=== PATIENT | female | born 1985 | race Caucasian/White ===

== ENCOUNTER 2019-01-19 19:22 | Inpatient (IN) ==
--- NOTE | 2019-01-19 20:10 | Obstetrical Progress Note ---
Date of Service January 19, 2019 Assessment & Plan (1) Post term , 41 weeks: I don't believe that a claudio bulb will be very effective for her at this point. I am also a little concerned about the bleeding at this point. Therefore, will monitor and see if she is in labor and what the bleeding does. Patient desires to be d/c if all is ok, baby looks well and she is not in active labor. She desires to do the early part of labor at home. Subjective Patient is a 33yowf with iup at 41 3/7 who presents for claudio bulb for planned induction tomorrow. Patient was in office today and was 1cm. Membranes stripped by physician. Since that time, she has been very crampy with some slight bleeding. +fm Physical Exam Constitutional: WD/WN, vitals as above Genitourinary: sve--cx is 1-2/90/-2, membranes feel intact sse--I had a really difficult time visualizing the cervix because of blood in the vault, tried to remove with large Q-tip but still had a hard time visualizing abandonded attempt toco--q2-4 min efm--120s with mod variability, accels to 150s, no decels Results & Data Vital Signs (Past 12 Hours) Vital Signs Temp Pulse Resp BP 01/19/19 19:39 36.4 C L 53 L 18 111/72 01/19/19 19:34 36.4 C L 53 L 18 111/72
[2019-01-19] MEDS ORDERED: PENICILLIN G POTASSIUM 3 MU in DEXTROSE 5% 100 ML IV PRN (22:19)
[2019-01-19] MEDS ORDERED: PENICILLIN G POTASSIUM 6 MU in DEXTROSE 5% 250 ML IV STA (22:19)
[2019-01-19] MEDS ORDERED: LACTATED RINGER'S 1,000 ML IV PRN (22:19)
[2019-01-19] MEDS ORDERED: OXYTOCIN 30 UNITS/500 ML BAG IV PRN (22:19)
--- NOTE | 2019-01-19 22:30 | History & Physical Report ---
Date of Service January 19, 2019 Assessment & Plan (1) Post term , 41 weeks: I suspect the patient is in early labor. Discussed given the bloody show I would like her to stay lizzie since she is scheduled for induction tomorrow. Fetus category one. Patient wants an unmedicated, noninterventional labor. Plan expectant management for now. arom/pit if indicated in the future. Anticipate . History of Present Illness Chief Complaint: contractions, induction planned for tomorrow. Primary Care Provider: NO PCP Patient is a with iup at 41 3/7 weeks who presented tonight for claudio bulb for cervical ripening. she had her membranes stripped in the office today and has been very crampy since with some mild bleeding. presented and was unable to really see cx with speculum secondary to blood. she was on my initial evaluation. has been uncomplicated. labs--O+/ab-/pap nl/ri/rprnr/hepb-/hiv-/gc/ct-/ gtt x 2 nl/panorama low risk/afp neg/gbs positive urein Allergies Allergy/AdvReac Type Severity Reaction Status Date / Time No Known Allergies Allergy Verified 01/19/19 19:36 Home Medications Home Medications Medication Instructions Recorded Confirmed Type PROBIOTIC PRODUCT (PROBIOTIC) 1 tab PO DAILY #0 02/05/18 01/19/19 History vit no.121-fbtd-sduae 1 tab PO DAILY #0 tab 02/05/18 01/19/19 History [ Vitamin] Patient History Medical History Healthy adult History of varicella Surgical History H/O hand surgery H/O oral surgery S/P dilation and curettage Social History Preferred Language: Yoruba Communication Ability: Effective Beliefs That Will Affect Care: None marital status: Current Living Situation: Spouse Other Information That Helps Us Care for You: No Feels Safe at Home: Yes Safety Concerns: Feels Safe At This Time Smoking Status: Never smoker Hx Alcohol Use: No Hx Substance Use: No OB History g1--715. 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
[2019-01-19 22:43] LABS: Hematocrit (blood only) 45.3 % (37-47); Hemoglobin 16.2 g/dL (12.0-16.0); Mean Corpuscular Volume 90.6 fL (80-100); Mean Platelet Volume 11.8 fL (7.4-10.4); Platelet Count 225 K/uL (130-400); RDW Coefficient of Variation 12.4 % (11.5-14.5); RDW Standard Deviation 41.2 fL (36.4-46.3); White Blood Count 18.62 K/uL (4.8-10.8)
[2019-01-19 22:44] LABS: Mean Corpuscular Hgb Conc 35.8 g/dL (32-36)
--- NOTE | 2019-01-20 03:17 | Labor Progress Brief Note ---
Date of Service January 20, 2019 Subjective breathing through contractions, doing well. Assessment & Plan (1) Post term , 41 weeks: Doing great. srom for clear fluid. Continue expectant management. fetus category one mostly. Physical Exam Constitutional: WD/WN, vitals as above Genitourinary: cx--8/100/-1 toco--q2-4min efm--120s with mod variability, rare variable, spon accel Results & Data Vital Signs (Past 12 Hours) Vital Signs Temp Pulse Resp BP 01/20/19 02:40 36.5 C 73 18 127/73 01/19/19 22:39 36.9 C 55 L 20 137/83 01/19/19 19:39 36.4 C L 53 L 18 111/72 01/19/19 19:34 36.4 C L 53 L 18 111/72
[2019-01-20] MEDS ORDERED: OXYCODONE/ACETAMINOPHEN 5mg/325mg TAB PO PRN (05:51)
[2019-01-20] MEDS ORDERED: ACETAMINOPHEN 325 MG TAB PO PRN (05:51)
[2019-01-20] MEDS ORDERED: BENZOCAINE 20% AER SPR 82.5 GM CAN EXT PRN (06:27)
[2019-01-20] MEDS ORDERED: SUPERCREAM 0.870% 15 GM JAR EXT PRN (06:27)
[2019-01-20] MEDS ORDERED: METHYLERGONOVINE MALEATE 0.2 MG/ML AMP IM ONE (06:27)
[2019-01-20] MEDS ORDERED: OXYTOCIN 30 UNITS/500 ML BAG IV PRN (06:27)
[2019-01-20] MEDS ORDERED: BISACODYL 10 MG SUPP PR PRN (06:27)
[2019-01-20] MEDS ORDERED: HYDROCORTISONE ACETATE 25 MG SUPP PR PRN (06:27)
--- NOTE | 2019-01-20 06:54 | Delivery Summary ---
DATE OF OPERATION: 01/20/2019 PREOPERATIVE DIAGNOSES: 1. Intrauterine at 41 and 3/7 weeks. 2. Active labor. POSTOPERATIVE DIAGNOSES: 1. Intrauterine at 41 and 3/7 weeks. 2. Active labor. PROCEDURES: 1. Normal spontaneous vaginal delivery. 2. Manual extraction of the placenta SURGEON: Alem Pizarro MD ANESTHESIA: None. ESTIMATED BLOOD LOSS: 450 mL. DESCRIPTION OF PROCEDURE: The patient presented to labor and delivery for Chapman catheter bulb placement for induction for the following day on 11/19. She was found to have some pretty good bleeding after having her membranes stripped in the office and she was 1-2 and 75% contractions about every 4 minutes. I decided not to put the Chapman bulb and just to observe her. She made some cervical change and we decided that she was in early active labor. Given that she was GBS positive, she was admitted. She progressed spontaneously without any intervention, had spontaneous rupture of membranes for clear fluid. When she became complete-complete and +1 station, she pushed for approximately an hour and a half to deliver a viable female in MARU/DOA presentation. The nose and mouth were bulb suctioned. On the perineum, there was no nuchal cord. The head restituted to the patient's left and the rest of the infant was then delivered without difficulty. The infant was immediately vigorous. There was terminal meconium. The nose and mouth were bulb suctioned. The infant was placed on maternal abdomen for drying and attention. The cord was clamped and cut at 1 minute of life. Cord blood was obtained. No segment. Placenta was manually extracted after 20 minutes and hemostasis was obtained with dilute Pitocin, IM Methergine and fundal massage. I did do one further sweep of the uterus after the manual extraction to remove some clot, but there were no appreciable retained products. The placenta appeared intact. Hemostasis was then good. The cervix, sulci, perineum, and rectum were all examined and found to be intact. No stitches were needed. Apgars were pending, weight pending. Mother and baby doing well at the end of the delivery. I attest to the content of the Intraoperative Record and any orders documented therein. Any exceptions are noted below. MTDD
[2019-01-20] MEDS: DOCUSATE SODIUM 100 MG CAP PO SCH ×2 (10:08→21:25)
[2019-01-20] MEDS: PRENATAL VITAMIN 1 TAB PO SCH (10:08)
[2019-01-20] MEDS: IBUPROFEN 600 MG TAB PO PRN (10:09)
--- NOTE | 2019-01-21 06:29 | Obstetrical Progress Note ---
Date of Service <Chas NeerajFabiano Randolph - Last Filed: 01/21/19 06:29> January 21, 2019 Assessment & Plan <Chas Randolph - Last Filed: 01/21/19 06:29> (1) (spontaneous vaginal delivery): -vital signs reviewed and WNL -last Hgb 16.2 -Blood type: O+, GBS+, Rubella Immune -pt doing well clinically -encourage ambulation, monitor and control pain with motrin tylenol, cont regular diet, monitor lochia -cont encourage breast feeding -anticipate d/c tomorrow Subjective <Chas NeerajFabiano Randolph - Last Filed: 01/21/19 06:29> 33 y/o PPD1 found in bed this morning in NAD. Reports no acute overnight events. Pt states that she has no pain other than appropriate soreness. Tolerating PO intake without N/V. Able to ambulate without issue. She is breast feeding without issue. No issues with voiding, no BM yet but passing gas. No other acute concerns or complaints. Review of Systems All systems reviewed & are unremarkable except as noted in HPI & below Physical Exam <Chas Randolph, - Last Filed: 01/21/19 06:29> Constitutional WD/WN, vitals as above Respiratory normal respiratory effort, lungs clear to auscultation Cardiovascular RRR, no murmur, no edema Gastrointestinal (Abdomen) mild abd tenderness Fundus at U, please correlate with attending findings Skin no rashes, warm and dry Psychiatric A+Ox3, euthymic affect Lymphatic no LE swelling, no calf tenderness Results & Data <Chas NeerajFabiano Randolph, - Last Filed: 01/21/19 06:29> Vital Signs (Past 12 Hours) Vital Signs Temp Pulse Resp BP Pulse Ox 01/21/19 03:40 36.6 C 59 L 16 104/61 98 01/21/19 00:10 36.7 C 90 16 101/60 98 01/20/19 20:05 36.7 C 72 16 113/66 98 Medications Administered Current Inpatient Medications Acetaminophen (Tylenol) 650 mg PO Q6H PRN PRN Reason: Pain/BAUGH/Fever Stop: 02/19/19 05:50 Benzocaine (Dermoplast Pain Relieving [place]) 1 appln EXT PRN PRN PRN Reason: Perineal Discomfort Stop: 02/19/19 06:26 Last Admin: 01/20/19 10:09 Dose: 82.5 appln Documented by: Bisacodyl (Dulcolax) 5 mg PO 1999 [facility] Stop: 01/21/19 20:01 Bisacodyl (Dulcolax) 10 mg [place] DAILY PRN PRN Reason: No BM on 2nd post- day Stop: 02/19/19 06:26 Cocaine HCl (Supercream 0.870%) 1 gm EXT BID PRN PRN Reason: Hemorrhoidal Inflammation Stop: 02/03/19 06:26 Last Admin: 01/20/19 10:08 Dose: 15 gm Documented by: Diphtheria/Pertussis/Tetanus Vacc (Adacel) 0.5 ml IM .ONCE ONE Stop: 01/21/19 09:01 Docusate Sodium (Colace) 100 mg PO BID [facility] Stop: 02/19/19 08:59 Last Admin: 01/20/19 10:08 Dose: 100 mg Documented by: Hydrocortisone (Anusol Hc) 25 mg [place] BID PRN PRN Reason: Hemorrhoidal Inflammation Stop: 02/19/19 06:26 Oxytocin (Pitocin) 30 units in 500 mls @ 333 mls/hr IV .Q1H31M PRN; Protocol PRN Reason: Bleeding Control Stop: 02/19/19 06:26 Last Titration: 01/20/19 06:45 Dose: Infused Documented by: Ibuprofen (Motrin) 600 mg PO Q4H PRN PRN Reason: Pain/BAUGH/Cramping/Fever Stop: 02/19/19 05:50 Last Admin: 01/20/19 10:09 Dose: 600 mg Documented by: Oxycodone/Acetaminophen (Percocet 5mg/325mg) 1 tab PO Q4H PRN PRN Reason: Pain not relieved by... Stop: 02/03/19 05:50 Prenat Multivit/[place]/Iron/Folic Ac ( Vitamin) 1 tab PO QAM [facility] Stop: 02/19/19 08:59 Last Admin: 01/20/19 10:08 Dose: 1 tab Documented by: <Nandini Adams MD - Last Filed: 01/21/19 07:45> Co-Signing Physician Notes I have reviewed the resident's note and examined the patient myself, and agree with the note above. The patient does desire discharge home today and is OK per starter cup powder mixer despite GBS, due to receiving adequate prophylaxis. Resident Activity Tracking <Chas Randolph, DO - Last Filed: 01/21/19 06:29> Resident Involvement: Resident Care Provided Care Provided: OB Delivery
[2019-01-21] MEDS: DOCUSATE SODIUM 100 MG CAP PO SCH (08:36)
[2019-01-21] MEDS: PRENATAL VITAMIN 1 TAB PO SCH (08:36)
[2019-01-21] MEDS: IBUPROFEN 600 MG TAB PO PRN (08:36)
[2019-01-21] MEDS ORDERED: DIPHTHERIA/TETANUS/PERTUSSIS 0.5 ML SYR/VIAL IM ONE (09:00)
[2019-01-21] MEDS ORDERED: BISACODYL 5 MG TABEC PO SCH (20:00)
== END 2019-01-21 12:00 | disposition home or self-care (01) | DRG 807 ==
LOC: OPB 19:22 → 4S1 19:26 → 4S2 01-20 09:16

== ENCOUNTER 2021-11-30 06:09 | Inpatient (IN) ==
[2021-11-30] MEDS ORDERED: OXYTOCIN 30 UNITS/500 ML BAG IV PRN ×2 (06:42→09:14)
[2021-11-30] MEDS ORDERED: LACTATED RINGER'S 1,000 ML IV PRN (06:42)
--- NOTE | 2021-11-30 06:47 | History & Physical Report ---
Date of Service November 30, 2021 Assessment & Plan (1) Normal labor: (2) 40 weeks gestation of : Plan: admit for labor. fetus category one. Expectant management. arom as needed. Wants to go unmedicated. anticipate . History of Present Illness Chief Complaint: labor Primary Care Provider: Aidan Luther DO Patient is a 36yowf with iup at 40 1/7 weeks who presents to labor and delivery with increasing contractions. Patient was seen last night and ruled out for rupture and was 2-3 cm. NO gross lof/vb. +fm. has been uncomplicated. GBS positive in urine. 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 IOL 12/06 Tdap given 07/25/21 OB Labs: Blood Type O Positive 04/20/21 Antibody Screen NEGATIVE 04/20/21 Hemoglobin 13.8 g/dL (12.0-16.0) 09/08/21 Hematocrit 41.1 % (37-47) 09/08/21 Mean Corpuscular Volume 92.9 fL (80-100) 04/20/21 Platelet Count 262 K/uL (130-400) 04/20/21 Rubella IgG Antibody Immune (Immune) 04/20/21 Rapid Plasma Reagin Nonreactive (Nonreactive) 04/20/21 Hepatitis B Surface Antigen Neg (Neg) 04/20/21 HIV (1&2) Ab and P24 Ag, 4th Gener Neg (Neg) 04/20/21 Glucose 1 Hour 50 gm Load 111 mg/dl (70-130) 09/08/21 Maternal Serum Alpha Fetoprotein 37.7 ng/mL 06/16/21 OB Optional Labs: Chlamydia trachomatis RNA NOT DETECTED (NOT DETECTED) 04/20/21 Neisseria gonorrhoeae RNA NOT DETECTED (NOT DETECTED) 04/20/21 Alpha Fetoprotein Triple Screen SEE NOTE 06/16/21 Labs Reviewed: cf/sma neg--2017 [facility] low risk CFDN--smp neg msafp--smp 28 week labs reviewed--mln Allergies Allergy/AdvReac Type Severity Reaction Status Date / Time No Known Drug Allergies Allergy Verified 11/29/21 09:05 Home Medications Medication Instructions Recorded Confirmed Type vits no.124-ferrous fum 1 tab PO DAILY #0 tab 02/05/18 11/29/21 History 27 mg iron-folic acid 800 mcg tablet ( Vitamin) Saccharomyces bethanyulardii 250 mg 1 PO .TAKE 1 CAPSULE Daily cap 02/23/19 11/29/21 History capsule cholecalciferol (vitamin D3) 50 2,000 unit PO tab 03/10/21 11/29/21 History mcg (2,000 unit) tablet docosahexaenoic acid 200 mg capsule See Rx Instructions PO .COMPLEX 03/10/21 11/29/21 History cap Patient History Medical History Elevated systolic blood pressure reading without diagnosis of hypertension with History of varicella (spontaneous vaginal delivery) Surgical History H/O hand surgery H/O oral surgery S/P dilation and curettage Family History Mother Breast cancer Father Obstructive sleep apnea Denies family history of Ovarian cancer Prostate cancer Myocardial infarction Lung cancer Colorectal cancer Social History Smoking Status: Never smoker Second Hand Exposure: No; Hx Alcohol Use: No Hx Substance Use: No Preferred Language: Lithuanian Communication Ability: Effective Visual Impairment: Limited Hearing Ability: Normal Hand Model Required: No Beliefs That Will Affect Care: None marital status: marital status details: Cali Moeller (38) [phone] Current Living Situation: Spouse Current Living Situation Comment: lives with spouse, daughter, dogs current occupational status: employed 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 How many Children do You have: 1 Other Information That Helps Us Care for You: No Feels Safe at Home: Yes Safety Concerns: Feels Safe At This Time Childhood Exposure to Second-Hand Smoke: No caffeine: Yes (half caff in morning of coffee ) Dental Care, Regularly: Yes Physical Activity Frequency: Daily Seatbelt Use: always Sunscreen Use: Yes Assistive Devices: Contacts and Glasses Physical Exam Constitutional: WD/WN, vitals as above Gastrointestinal (Abdomen): soft, gravid, nt Psychiatric: A+Ox3, euthymic affect Genitourinary: cx--6/100/-2, bag palpable toco--q2-3min efm--140s with mod variability, accels to 160s, no decels Results & Data ([facility]) Vital Signs (Past 12 Hours) Vital Signs Temp Pulse Resp BP 11/30/21 06:18 36.3 C L 20 11/30/21 06:17 52 L 102/55 L Code Status & VTE Plan VTE Prophylaxis Plan VTE Prophylaxis will be ordered: No Coding Level of Care Code None Diagnoses Normal labor O80; Z37.9 40 weeks gestation of Z3A.40
[2021-11-30] MEDS ORDERED: PENICILLIN G POTASSIUM 6 MU in DEXTROSE 5% 250 ML IV ONE (07:00)
[2021-11-30 07:10] LABS: Hematocrit (blood only) 41.8 % (37-47); Hemoglobin 14.5 g/dL (12.0-16.0); Mean Corpuscular Hemoglobin 31.6 pg (25-34); Mean Corpuscular Hgb Conc 34.7 g/dL (32-36); Mean Corpuscular Volume 91.1 fL (80-100); Mean Platelet Volume 11.3 fL (7.4-10.4); Platelet Count 208 K/uL (130-400); RDW Coefficient of Variation 13.2 % (11.5-14.5); RDW Standard Deviation 43.3 fL (36.4-46.3); Red Blood Count 4.59 M/uL (4.2-5.4); White Blood Count 16.76 K/uL (4.8-10.8)
[2021-11-30] MEDS ORDERED: ERYTHROMYCIN OP OINT 1 GM PKT ONE (08:21)
[2021-11-30] MEDS ORDERED: LIDOCAINE 1% LOCAL 20 ML VIAL ONE (08:29)
[2021-11-30] MEDS ORDERED: DIPHTHERIA/TETANUS/PERTUSSIS 0.5 ML SYR/VIAL IM ONE (09:14)
[2021-11-30] MEDS ORDERED: ACETAMINOPHEN 325 MG TAB PO PRN (09:14)
[2021-11-30] MEDS ORDERED: BENZOCAINE 20% AER SPR 82.5 GM CAN EXT PRN (09:14)
[2021-11-30] MEDS ORDERED: bisacodyL 10 MG SUPP PR PRN (09:14)
[2021-11-30] MEDS ORDERED: IBUPROFEN 600 MG TAB PO PRN (09:14)
[2021-11-30] MEDS ORDERED: HYDROCORTISONE ACETATE 25 MG SUPP PR PRN (09:14)
[2021-11-30] MEDS ORDERED: PENICILLIN G POTASSIUM 3 MU in DEXTROSE 5% 100 ML IV PRN (11:00)
--- NOTE | 2021-11-30 14:59 | Delivery Summary ---
DATE OF SERVICE: 11/30/2021 PROCEDURE: Normal spontaneous vaginal delivery. SURGEON: Mateusz Cobos MD. PREOPERATIVE DIAGNOSES: 1. Single intrauterine at 40 weeks 1 day gestational age. 2. Spontaneous labor. 3. GBS positive. POSTOPERATIVE DIAGNOSES: 1. Single intrauterine at 40 weeks 1 day gestational age. 2. Spontaneous labor. 3. GBS positive. 4. Status post procedure. ESTIMATED BLOOD LOSS: 200 mL. DRAINS: None. FLUIDS: Continuous lactated Ringer. URINE OUTPUT: Not measured. COMPLICATIONS: None. FINDINGS: Viable female with weight of 7 pounds 11 ounces and Apgars of 8 and 9 at one and fi ve minutes respectively. DESCRIPTION OF PROCEDURE: The patient progressed to 10 cm dilated, 100% effaced, positive 2-3 statio n, pushed over intact perineum without anesthesia and delivered a viable female infant with weight an d Apgars as noted above. Head of the presented in JANIE position, restituted to left transvers e. No nuchal cord was noted. Body and shoulders quickly followed. was noted to be vigorous soon after delivery and 1 minute delayed cord clamping was initiated. Cord was then double clamped and cut. remained on maternal abdomen. Cord blood was obtained. Attention was then turned to delivery of the placenta, which was delivered intact, 3-vessel cord, gen tle cord traction. On inspection of perineum, vagina, cervix, there was noted to be no lacerations. Sponge and instrument counts were correct at the completion of the case. Both mother and st able in the immediate post-delivery period. Job ID: [id number]
[2021-11-30] MEDS: DOCUSATE SODIUM 100 MG CAP PO SCH (20:03)
[2021-12-01] MEDS: FERROUS SULFATE 325 MG TAB PO SCH (07:33)
[2021-12-01] MEDS: DOCUSATE SODIUM 100 MG CAP PO SCH ×2 (07:33→22:07)
[2021-12-01] MEDS: PRENATAL VITAMIN 1 TAB PO SCH (07:33)
--- NOTE | 2021-12-01 07:48 | Obstetrical Progress Note ---
Date of Service December 01, 2021 Assessment & Plan (1) Encounter for care and examination after delivery: Day 2 s/p . Doing well. Routine care Subjective Ambulation: ambulating normally Voiding: no voiding problems Passing Gas:: Yes Diet Tolerance:: regular diet Lochia:: Moderate Feeding Type:: breast feeding Physical Exam Constitutional WD/WN, vitals as above Respiratory normal respiratory effort; no respiratory distress and no labored breathing Gastrointestinal (Abdomen) Inspection/Auscultation: abdomen normal to inspection; abdomen not distended Percussion/Palpation: abdomen soft; abdomen nontender, no guarding and abdomen not rigid Genitourinary OB Exam Abdomen: + fundal height Fundus: + firm and + relation to umbilicus (Below); not tender or not boggy Results & Data ([facility]) Vital Signs (Past 12 Hours) Vital Signs Temp Pulse Resp BP Pulse Ox 12/01/21 04:11 36.6 C 53 L 18 103/67 98 12/01/21 00:01 36.6 C 53 L 18 110/69 98 11/30/21 20:04 36.7 C 64 20 106/62 98
[2021-12-01] MEDS ORDERED: bisacodyL 5 MG TABEC PO SCH ×2 (20:00)
--- NOTE | 2021-12-02 07:27 | Obstetrical Progress Note ---
Date of Service December 02, 2021 Assessment & Plan (1) Encounter for care and examination after delivery: day #1 she is ambulating well tolerating oral diet minimal pain no extremity pain and bleeding is minimal she request discharge home this is reasonable Subjective Ambulation: ambulating normally Voiding: no voiding problems Passing Gas:: Yes Diet Tolerance:: regular diet Lochia:: Small Results & Data ([facility]) Vital Signs (Past 12 Hours) Vital Signs Temp Pulse Resp BP Pulse Ox 12/01/21 22:51 98.1 F 55 L 16 113/67 97
[2021-12-02] MEDS: PRENATAL VITAMIN 1 TAB PO SCH (07:44)
[2021-12-02] MEDS: FERROUS SULFATE 325 MG TAB PO SCH (07:44)
[2021-12-02] MEDS: DOCUSATE SODIUM 100 MG CAP PO SCH (07:45)
== END 2021-12-02 10:36 | disposition home or self-care (01) | DRG 807 ==
LOC: OPB 06:09 → 4S1 06:11 → 4E2 11:31